=== PATIENT | female | born 1990 | race African-American/Black ===

== ENCOUNTER 2017-04-23 23:35 | Inpatient (IN) ==
[2017-04-24 00:16] LABS: URINE SOURCE VOIDED
[2017-04-24] MEDS ORDERED: LR 1,000 ML IV ONE (00:26)
[2017-04-24] MEDS ORDERED: STADOL IV ONE (00:26)
[2017-04-24 00:27] LABS: BILIRUBIN URINE NEGATIVE (NEGATIVE); BLOOD URINE NEGATIVE (NEGATIVE); CLARITY VERY CLOUDY (CLEAR); COLOR YELLOW; GLUCOSE URINE NEGATIVE (NEGATIVE); LEUKOCYTES URINE TRACE (NEGATIVE); NITRITE URINE NEGATIVE (NEGATIVE); PROTEIN URINE NEGATIVE (NEGATIVE); SP GRAVITY URINE 1.015; UROBILINOGEN URINE 1+(1 mg/dL)
[2017-04-24] MEDS ORDERED: TYLENOL PO PRN (02:16)
[2017-04-24] MEDS ORDERED: KEFZOL 1 GM/D5W 1 GM/50 ML IVPB IV PRN (02:16)
[2017-04-24] MEDS ORDERED: PEPCID PO PRN (02:16)
[2017-04-24] MEDS ORDERED: ZOFRAN IV PRN ×2 (02:16→07:27)
[2017-04-24] MEDS ORDERED: PITOCIN 30 UNITS/LR 30 UNITS/500 ML IV.SOLN IV SCH (02:16)
[2017-04-24] MEDS ORDERED: LR 1,000 ML IV SCH (02:16)
[2017-04-24] MEDS ORDERED: STADOL IV PRN (02:16)
[2017-04-24] MEDS ORDERED: PEPCID IV PRN (02:16)
[2017-04-24 02:28] LABS: MANUAL DIFF NEEDED? NO
[2017-04-24] MEDS ORDERED: SODIUM CHLORIDE 0.9% INJ SCH (02:30)
[2017-04-24] MEDS ORDERED: XYLOCAINE-MPF 1% INJ ONE ×2 (02:36→03:28)
[2017-04-24 02:44] LABS: BASO% 0.1 % (0.0-0.8); EOS# 0.09 X1000 (0.0-0.7); EOS% 0.9 % (0.0-10.0); HEMATOCRIT 31.8 % (37.0-47.0); HEMOGLOBIN 10.8 g/dL (12.0-16.0); IMM GRAN# 0.04 X1000 (0.0-0.04); IMM GRAN% 0.4 % (0.0-0.5); LYMPH# 1.81 X1000 (1.2-3.4); MCH 30.7 PG (27-31); MCV 90.3 FL (81-99); MONO# 1.05 X1000 (0.11-0.59); MPV 9.5 FL (7.4-10.4); NEUT% 68.6 % (42.2-75.2); PLT 251 X1000 (130-400); RBC 3.52 XMIL (4.2-5.4)
[2017-04-24] MEDS ORDERED: FENTANYL-BUPIV-NS 2 MCG-0.1% 200 ML EPIDURAL SCH (03:00)
[2017-04-24] MEDS ORDERED: MINERAL OIL PO ONE (03:28)
[2017-04-24] MEDS ORDERED: PITOCIN 20 UNITS/LR 20 UNITS/1,000 ML IV.SOLN IV SCH (05:22)
[2017-04-24] MEDS ORDERED: HYDROXYZINE PO PRN (05:22)
[2017-04-24] MEDS ORDERED: PITOCIN 30 UNITS/LR 30 UNITS/500 ML IV.SOLN IV ONE (05:22)
[2017-04-24] MEDS ORDERED: HYDROXYZINE IM PRN (05:22)
[2017-04-24] MEDS ORDERED: AMBIEN PO PRN (05:22)
[2017-04-24] MEDS ORDERED: XYLOCAINE-MPF 1% INJ PRN (05:22)
[2017-04-24] MEDS ORDERED: BENADRYL IV PRN (05:22)
[2017-04-24] MEDS ORDERED: PITOCIN IM PRN (05:22)
[2017-04-24] MEDS ORDERED: CYTOTEC PO PRN (05:22)
[2017-04-24] MEDS ORDERED: PERI MEDS (DERMOPLAST/NUPERCAINAL/TUCKS) MISC PRN (05:22)
[2017-04-24] MEDS ORDERED: M-M-R II VACCINE SUBQ ONE (05:22)
[2017-04-24] MEDS ORDERED: BOOSTRIX VACCINE IM ONE (05:22)
[2017-04-24] MEDS ORDERED: BENADRYL PO PRN (05:22)
[2017-04-24] MEDS ORDERED: MINERAL OIL PO PRN (05:22)
--- NOTE | 2017-04-24 06:00 | OPERATIVE NOTE ---
PROCEDURE DATE: 04/24/2017 PREDELIVERY DIAGNOSES: 1. Intrauterine at 40 weeks and 3 days. 2. Active labor. POSTDELIVERY DIAGNOSES: 1. Intrauterine at 40 weeks and 3 days. 2. Active labor. PROCEDURE PERFORMED: Vaginal delivery. PHYSICIAN: Dr. Henry. ANESTHESIA: Epidural, with Dr. Londono. FINDINGS: Viable female . Do not have weight or Apgars. Cords were 3 vessels. Placenta was spontaneous and intact. There were no lacerations or tears. ESTIMATED BLOOD LOSS: 100 mL. COUNTS: All counts correct. HOSPITAL COURSE: Ms. Katja Mauro is a 27-year-old 3, para 2, at 40 and 3, who presented early this morning in labor. She was admitted, given epidural anesthesia. She progressed without distress or dystocia. Reached complete cervical dilatation. Then after pushing for approximately an hour, she began , at which point the bed was broken down and she was prepped and draped. With continued pushing, she delivered a viable female , occiput anterior, over an intact perineum. Once head delivered, shoulders and rest of the body followed, without difficulty, and was placed on mother's abdomen. Cord was doubly clamped and cut. Care of infant was taken over by nursing personnel. Cord blood was obtained. Three-vessel cord noted, and then gentle traction on the cord resulted in delivery of the placenta after approximately 2 minutes. It was inspected and found to be intact. The perineum and vagina were inspected. No lacerations or tears. Vaginal sweep did not reveal any clots, material. All counts were correct. Estimated blood loss 100 mL. Expect routine . cc: Randy Henry MD
[2017-04-24] MEDS: MOTRIN PO PRN (12:27)
[2017-04-24 15:31] LABS: UR AMPHETAMINES QUAL NONE DETECTED (NONE DETECT); UR BARBITUATES QUAL NONE DETECTED (NONE DETECT); UR BENZODIAZEPIN QUAL NONE DETECTED (NONE DETECT); UR CANNABINOIDS QUAL NONE DETECTED (NONE DETECT); UR COCAINE QUAL NONE DETECTED (NONE DETECT); UR MDMA QUAL NONE DETECTED (NONE DETECT); UR METHADONE QUAL NONE DETECTED (NONE DETECT); UR METHAMPHETAMINE QUAL NONE DETECTED (NONE DETECT); UR OPIATES QUAL NONE DETECTED (NONE DETECT); UR OXYCODONE QUAL NONE DETECTED (NONE DETECT); UR PCP QUAL NONE DETECTED (NONE DETECT); UR TCA QUAL NONE DETECTED (NONE DETECT)
[2017-04-24] MEDS: NORCO-5 PO PRN ×2 (17:40→19:11)
[2017-04-24] MEDS: PERICOLACE PO SCH (20:22)
[2017-04-25] MEDS: NORCO-10 PO PRN ×2 (00:50→05:58)
[2017-04-25 06:06] LABS: MANUAL DIFF NEEDED? NO
[2017-04-25 06:11] LABS: BASO% 0.1 % (0.0-0.8); EOS# 0.09 X1000 (0.0-0.7); EOS% 0.9 % (0.0-10.0); HEMATOCRIT 30.7 % (37.0-47.0); HEMOGLOBIN 10.2 g/dL (12.0-16.0); IMM GRAN# 0.03 X1000 (0.0-0.04); IMM GRAN% 0.3 % (0.0-0.5); LYMPH# 2.06 X1000 (1.2-3.4); LYMPH% 19.9 % (20.5-51.1); MCH 30.3 PG (27-31); MCHC 33.2 g/dL (33-37); MCV 91.1 FL (81-99); MONO# 0.94 X1000 (0.11-0.59); MONO% 9.1 % (1.7-9.3); MPV 9.6 FL (7.4-10.4); NEUT% 69.7 % (42.2-75.2); PLT 228 X1000 (130-400); RBC 3.37 XMIL (4.2-5.4)
[2017-04-25] MEDS: MOTRIN PO PRN (11:17)
[2017-04-25] MEDS: NORCO-5 PO PRN ×2 (11:18→22:07)
[2017-04-25] MEDS: PERICOLACE PO SCH (21:10)
[2017-04-26 08:21] VITALS: BP 99/56
[2017-04-26] MEDS: MOTRIN PO PRN (08:52)
== END 2017-04-26 14:10 | disposition home or self-care (01) ==
LOC: P.OPLD 23:35 → P.LD 23:37 → P.WC 04-24 19:43
PROVIDERS: ADMIT Obstetrics & Gynecology; ATTEND Obstetrics & Gynecology